=== PATIENT | male | born 1935 | race Caucasian/White ===

== ENCOUNTER 2018-11-12 06:34 | Day surgery (SDC) | payer MEDICARE, BC ==
[~2018-11-12 06:34] MED LIST: CEFAZOLIN 2 Gram 2 GM/50 ML BAG IVPB ONE; CELECOXIB 100 MG CAPSULE PO ONE; FAMOTIDINE 20MG TABLET PO ONE; MECLIZINE 25 MG TABLET PO ONE; METOCLOPRAMIDE 10 MG TABLET PO ONE; VANCOMYCIN HCL 1,000 MG in DEXTROSE 5 % IN WATER 250 ML IVPB ONE
[2018-11-12] MEDS ORDERED: DEXAMETHASONE 4 MG/ML 1ML VIAL IVP ONE (06:35)
[2018-11-12] MEDS ORDERED: PROPOFOL 10 MG/ML VIAL IV ONE (06:35)
[2018-11-12] MEDS ORDERED: TRANEXAMIC ACID 1,000 MG/10 ML ML IV ONE ×2 (06:35)
[2018-11-12] MEDS ORDERED: BUPIVACAINE 0.5% W/EPI MPF 30 ML VIAL IVP ONE (06:35)
[2018-11-12] MEDS ORDERED: ROPIVACAINE HCL (NAROPIN) /PF 5MG/ML 20ML VIAL IV ONE (06:35)
[2018-11-12] MEDS ORDERED: KETOROLAC 30 MG/ML VIAL IVP ONE (06:35)
[2018-11-12] MEDS ORDERED: 0.9 % SODIUM CHLORIDE 10 ML VIAL IVP ONE (06:35)
[2018-11-12] MEDS ORDERED: MIDAZOLAM HCL 2MG/2ML VIAL IV ONE (06:35)
[2018-11-12 07:33] LABS: ABO GROUP O; ANTIBODY SCREEN NEGATIVE (NEGATIVE); RH TYPE POSITIVE
[2018-11-12] MEDS ORDERED: ZOLPIDEM TARTRATE 5 MG TABLET PO PRN (10:52)
[2018-11-12] MEDS ORDERED: ACETAMINOPHEN W/ CODEINE 300MG/60MG TABLET PO PRN ×2 (10:52)
[2018-11-12] MEDS ORDERED: AL HYDROX/MAG HYDROX 30ML UD PO PRN (10:52)
[2018-11-12] MEDS ORDERED: HYDROMORPHONE HCL 2 MG/ML VIAL IM PRN (10:52)
[2018-11-12] MEDS ORDERED: DIPHENHYDRAMINE HCL 25 MG CAPSULE PO PRN (10:52)
[2018-11-12] MEDS ORDERED: HYDROCODONE/APAP 10/325 TABLET PO PRN ×2 (10:52)
[2018-11-12] MEDS ORDERED: TRAMADOL HCL 50 MG TABLET PO PRN (10:52)
[2018-11-12] MEDS ORDERED: ACETAMINOPHEN 325 MG TAB PO PRN (10:52)
[2018-11-12] MEDS ORDERED: ONDANSETRON HCL IV 4 MG/2 ML VIAL IVP PRN (10:52)
[2018-11-12] MEDS ORDERED: KETOROLAC 30 MG/ML VIAL IVP PRN ×2 (10:52)
[2018-11-12] MEDS ORDERED: MAGNESIUM HYDROXIDE 30 ML UDC PO PRN (10:52)
[2018-11-12] MEDS ORDERED: NALOXONE 0.4 MG/1 ML VIAL IVP PRN (10:52)
[2018-11-12] MEDS ORDERED: BISACODYL 10 MG SUPP RC PRN (10:52)
[2018-11-12] MEDS: POTASSIUM CHLORIDE/D5-0.9%NACL 20 MEQ/1,000 ML BAG IV SCH ×2 (13:30→22:09)
--- NOTE | 2018-11-12 14:49 | Rehab Evaluation ---
Patient Information - Patient Information Diagnosis: L knee OA Ordered Treatment: PT Evaluate and Treat Status: Initial Evaluation Surgery: Yes (L TKA) Date of Surgery: 11/12/18 Past Medical/Surgical Hx: PAST MEDICAL/SURGICAL HISTORY Past Surgical History bilat shoulder sx appy PMH - Respiratory Hx Respiratory Disorders Yes Hx Sleep Apnea Yes Hx of CPAP No PMH - Cardiovascular Hx Cardiovascular Disorders Yes Exercise Tolerance Fair Comment: hyperlipidemia PMH - Neuro Hx Neurological Disorders Yes Hx Seizures Yes: 1x over 1 yr ago on meds no activity since Comment: memory issues PMH - GI Hx Gastrointestinal Disorders No PMH - Hx Genitourinary Disorders Yes Hx Bladder Problem Yes: frequency on meds PMH - Endocrine Hx Endocrine Disorders No PMH - Musculoskeletal Hx Musculoskeletal Disorders Yes Hx Arthritis Yes: left knee PMH - Psych Hx Psychiatric Problems Yes Hx Depression Yes: on meds PMH - Hematology/Oncology Hx Hematology/Oncology Yes Disorders Hx Bruising Yes: bruises easily Premorbid Status: Detail (Prior to surgery, the patient was independent with mobility.) Social History: Detail (The patient lives in a 2 story home with 2 steps at the front enterance with no railings. The patient will be living primarily on the first floor. The bathroom is equipped with a tub/shower combination and a standard height toilet with a riser seat. The patient has a standard walker.) Precautions: [place], Fall, Other (WBAT on the L LE) - Time With Patient Total Time Spent With Patient (Min): 30 Treatment Procedures: Detail (Inital evaluation) Subjective Information - Subjective Information Per Patient (The patient had complaints of L knee pain level 3 at the highest using 0 to 10 pain scale.) Objective Data - Mental Status Patient Orientation: Oriented x3 - Visual Perception Appears within normal limits for therapeutic activities - ROM Not within normal limits (The patients L knee AROM was limited as to be expected following surgery. All other LE AROM was WNL.) - Strength/Tone Not within normal limits (The patient's L LE strength was not tested but was functional. The patient's R LE strength was generally 4+ to 5/5.) - Bed Mobility Independent (The patient was independent with supine to sit with use of R LE to lift L LE. The patient was independent with scooting up in bed.) - Transfers Independent (Independent with sit to and from stand transfer.) - Balance Balance Sitting: Good Balance Standing: Good - Sensation Intact - Gait Detail (The patient ambulated with standard walker 82 feet x1 WBAT on L LE with supervision for safety and occasional verbal cues for proper technique of use of walker.) Therapy Assessment - Therapy Assessment Detail (The patient was independent with bed mobility, transfers and required verbal cueing/CG with ambulation. Feel the patient will progress well with mobility.) Problem List - Problem List Physical Therapy Problem List: Detail (1) Decreased L knee AROM 2) Decreased L LE strength) Goals - Goals Physical Therapy Goals: 1) The patient will ambulate independently with assistive device without verbal cueing household distances WBAT on the L LE. 2 ) The patient will ambulate on steps with using proper technique with supervision for safety. 3) The patient will be independent with HEP of TKA exercises. Prognosis - Prognosis Good Plan - Plan Physical Therapy Plan: PT for1-2 sessions for gait training on levels and stairs and instruction in HEP.
[2018-11-12] MEDS: CEFAZOLIN 2 Gram 2 GM/50 ML BAG IVPB SCH (17:59)
[2018-11-12] MEDS: DOCUSATE SODIUM 100 MG CAPSULE PO SCH (21:47)
[2018-11-12] MEDS ORDERED: LEVETIRACETAM 750 MG PO SCH (22:00)
[2018-11-13] MEDS: CEFAZOLIN 2 Gram 2 GM/50 ML BAG IVPB SCH ×2 (00:45→09:51)
[2018-11-13] MEDS: POTASSIUM CHLORIDE/D5-0.9%NACL 20 MEQ/1,000 ML BAG IV SCH ×2 (05:08→11:30)
[2018-11-13] MEDS ORDERED: LEVETIRACETAM 750 MG PO SCH (06:00)
[2018-11-13 06:37] LABS: HEMOGLOBIN 10.6 gm/dl (14.0-18.0)
[2018-11-13 06:50] LABS: BLOOD UREA NITROGEN 13 mg/dL (8-23); CREATININE 0.9 mg/dL (0.7-1.2); EST GLOMERULAR FILTRATION RATE > 60 mL/min; GLUCOSE,RANDOM 123 mg/dL (74-109)
--- NOTE | 2018-11-13 08:44 | Rehab Evaluation ---
Patient Information - Patient Information Diagnosis: L knee OA Ordered Treatment: OT Evaluate and Treat Status: Initial Evaluation Surgery: Yes (L TKA) Date of Surgery: 11/12/18 Past Medical/Surgical Hx: PAST MEDICAL/SURGICAL HISTORY Past Surgical History bilat shoulder sx appy PMH - Respiratory Hx Respiratory Disorders Yes Hx Sleep Apnea Yes Hx of CPAP No PMH - Cardiovascular Hx Cardiovascular Disorders Yes Exercise Tolerance Fair Comment: hyperlipidemia PMH - Neuro Hx Neurological Disorders Yes Hx Seizures Yes: 1x over 1 yr ago on meds no activity since Comment: memory issues PMH - GI Hx Gastrointestinal Disorders No PMH - Hx Genitourinary Disorders Yes Hx Bladder Problem Yes: frequency on meds PMH - Endocrine Hx Endocrine Disorders No PMH - Musculoskeletal Hx Musculoskeletal Disorders Yes Hx Arthritis Yes: left knee PMH - Psych Hx Psychiatric Problems Yes Hx Depression Yes: on meds PMH - Hematology/Oncology Hx Hematology/Oncology Yes Disorders Hx Bruising Yes: bruises easily Premorbid Status: Detail (Prior to surgery, the patient was independent with mobility, ADLs and he was responsible for washing dishes.) Social History: Detail (The patient lives with his and son in a 2 story home with 2 steps at the entrance with no railings. The patient will be living primarily on the first floor. The bathroom is equipped with a tub/shower combination and a elevated toilet with a riser seat. He typically stands to shower. The patient has a standard walker, toilet riser and electrocardiographic technician. His and son are responsible for home mgmt, meal prep and laundry.) Precautions: [place], Fall, Other (WBAT on the L LE) - Time With Patient Total Time Spent With Patient (Min): 40 Treatment Procedures: Detail (OT eval low complexity) Subjective Information - Subjective Information Per Patient, Other ( was present during eval) Objective Data - Pain Pain Present: Yes (-01/29) - Mental Status Patient Orientation: Oriented x3 - Visual Perception Appears within normal limits for therapeutic activities - ROM Within normal limits (Right shoulder motion impaired due to previous shoulder surgery, remaining albina UE AROM WNL.) - Strength/Tone Within normal limits (Right shoulder 2-/5 due to previous shoulder surgery, remaining albina UE strength 4+/5. Pt reports he is completely functional with impaired right UE as he has adapted to weakness.) - Coordination Appears within normal limits for therapeutic activities - Bed Mobility Independent (Ind with supine to sit.) - Transfers Independent (Ind with sit to stand from EOB) - Balance Balance Sitting: Good Balance Standing: Good - Sensation Intact - Gait Detail (Pt ambulating in room with standard walker.) - ADL's/IADL's Detail (Pt educated and able to demonstrate learning of modified LE dressing techniques including doffing briefs and slipper socks, donning briefs, sweatpants and tennis shoes. Reviewed kitchen and bathroom safety and modifications, pt verbalized understanding.) Therapy Assessment - Therapy Assessment Detail (Pt is Ind with modified LE dressing techniques.) Problem List - Problem List Physical Therapy Problem List: Detail (1) Decreased L knee AROM 2) Decreased L LE strength) Occupational Therapy Problem List: Detail (No current IP OT problems identified. ) Goals - Goals Physical Therapy Goals: 1) The patient will ambulate independently with assistive device without verbal cueing household distances WBAT on the L LE. 2 ) The patient will ambulate on steps with using proper technique with supervision for safety. 3) The patient will be independent with HEP of TKA exercises. Occupational Therapy Goals: No current IP OT goals identified. Prognosis - Prognosis Good Plan - Plan Physical Therapy Plan: PT for1-2 sessions for gait training on levels and stairs and instruction in HEP. Occupational Therapy Plan: No further IP OT recommended. Thank you for this referral.
[2018-11-13] MEDS: DOCUSATE SODIUM 100 MG CAPSULE PO SCH (09:13)
--- NOTE | 2018-11-13 09:50 | Operative Note ---
DATE OF SURGERY: 11/12/2018 PREOPERATIVE DIAGNOSIS: End-stage arthrosis of the left knee. POSTOPERATIVE DIAGNOSIS: End-stage arthrosis of the left knee. OPERATION: Cemented left total knee arthroplasty using [employer] II components with a size 7 cobalt chrome femur, a size 7 stem tibia baseplate, a 9 mm lipped tibial insert, and a 35 mm all plastic patella. Staff Surgeon: Tom Ji MD Anesthesia: Spinal. PREPARATION: Chloraprep. INDIVIDUAL CONSIDERATIONS: None. PROCEDURE: The patient was taken to the operating room, placed supine on the operating room table. He had a successful induction of spinal anesthetic. The left lower extremity was prepped and draped in the usual fashion. The limb was elevated and tourniquet was inflated to 250 mmHg. The patient had a midline approach to the knee. Sharp dissection carried down through skin and subcutaneous tissue. Small veins were coagulated with a Bovie. A medial arthrotomy was performed. The patella was everted and the knee was flexed. The patient had exposed bone with bone loss medially and extending into the patellofemoral compartment. Fat pad was resected, ACL was sacrificed, provisional anterior meniscectomies were performed. The capsule was released from the medial proximal tibia. The initial femoral test pilot hole was then made freehand. The intramedullary femoral cutting jig was placed. It was cut in 7.0 degrees of valgus and adjusted for rotation and secured with pins for a 10 mm resection. The initial transverse cut was then made. The skin guide was placed in the anterior and posterior test pilot holes. It was set for a 9 mm resection keyed off the high lateral side and secured with pins. When cutting the tibia, care was taken to preserve the PCL insertion on the tibia. It was found that a size 7 would be appropriate. The anterior and posterior cuts followed by chamfer cuts were made. Osteophytes removed, and a size 7 trial was placed and found to fit well. The tibia was brought forward, and the remainder of the meniscal remnants removed with a Bovie. The extraarticular tibial cutting jig was placed. It was cut in neutral with a 3-degree AP slope. After cutting the tibia, osteophytes were removed. The remainder of the meniscal remnants were removed and it was found that a 7 baseplate trial fit appropriately. With a 9 mm trial and a femoral trial, there was excellent motion and stability, ligamentous balance, rotation alignment, patellofemoral tracking were normal. No lateral release was required. The femoral test pilot holes were impacted and the tri-flange tibial stamp was impacted, and these trial components were removed. The patient had a thick patella and roughly 9 mm of bone was removed freehand. I was easily able to fit a 35 patella, and the 3 test pilot holes were drilled. After thorough irrigation, tourniquet was let down briefly to get bleeders posteriorly and then placed back up again. The knee was then thoroughly irrigated out again with pulsatile Betadine and saline to remove any visual or palpable debris. Bony surfaces were then dried. A size 7 stem tibia baseplate was cemented into place followed by impaction of the 9 mm lipped tibial insert followed by cementing in the size 7 cobalt chrome femur followed by cementing in the 35 mm patella. The implant surfaces were compressed, excess cement was removed, and after the cement had set, there was excellent motion and stability, ligamentous balance, rotation alignment, and patellofemoral tracking were normal. No lateral release was required. Again hemostasis was obtained with a Bovie after dropping the tourniquet. The skin and subcutaneous tissue and periosteum were infiltrated with 30 mL of 0.5% Marcaine with epinephrine. The capsule was then closed with a running #2 quill, subcu was closed in layers with running 0 quill, skin was closed with nemo. The patient did receive 1 g of tranexamic acid preoperatively. I mixed 1 g of tranexamic acid with 30 mL of saline and injected into the knee through a sterile 18-gauge needle and a sterile bulky compressive MILEY-type dressing was applied. The patient tolerated the procedure well. Needle and sponge counts were correct. Estimated blood loss was minimal, and he was taken back to recovery in good condition. There were no complications. PIOTR
[2018-11-13] MEDS ORDERED: TAMSULOSIN HCL 0.4 MG CAP.ER.24H PO SCH (10:00)
[2018-11-13] MEDS ORDERED: RIVAROXABAN 10 MG TABLET PO SCH (10:00)
[2018-11-13] MEDS ORDERED: ASPIRIN 81 MG TABEC PO SCH (10:00)
[2018-11-13] MEDS ORDERED: PATIENT OWN MED: MYBETRIQ 50 MG PO SCH (10:00)
[2018-11-13] MEDS ORDERED: PATIENT OWN MED: ESCITALOPRAM 10 MG PO SCH (10:00)
[2018-11-13] MEDS ORDERED: PATIENT OWN MED: LOVASTATIN 20 MG PO SCH (10:00)
[2018-11-13] MEDS ORDERED: FERROUS SULFATE 325 MG TAB PO SCH (10:00)
[2018-11-13] MEDS ORDERED: ARICEPT 5 MG PO SCH (10:00)
[2018-11-13] MEDS ORDERED: VESICARE 5 MG PO SCH (10:00)
--- NOTE | 2018-11-13 10:50 | Physical Therapy Tx Note ---
Physical Therapy Tx Note - Treatment Note Tolerated: Good Total Time Spent With Patient: 25 Physical Therapy Tx Note: Detail (The patient was up in chair when PT arrived. The patient ambulated 80 feet with standard walker WBAT on the L LE independently. The patient completed the following TKA exercises: SLR, ankle pumps, quad sets, gluteal sets, hamstring sets and heel slides. The patient has met all inpatient goals and is discharged from inpatient PT.) Physical Therapy Problem List: Detail (1) Decreased L knee AROM 2) Decreased L LE strength) Physical Therapy Goals: 1) The patient will ambulate independently with assistive device without verbal cueing household distances WBAT on the L LE. ( Goal Met). 2) The patient will ambulate on steps with using proper technique with supervision for safety. (Goal Met). 3) The patient will be independent with HEP of TKA exercises.(Goal Met) Prognosis: Good Physical Therapy Plan: All inpatient goals have been met. The patient has been discharged from inpatient PT and is to receive home PT.
== END 2018-11-13 12:45 | disposition home health service (06) ==
LOC: SUR 06:34 → MEDSURG 11:23 → SUR 11-13 12:45
PROVIDERS: ATTEND Orthopaedic Surgery
DX: M17.12 Unilateral primary osteoarthritis, left knee (principal); R56.9 Unspecified convulsions; E78.00 Pure hypercholesterolemia, unspecified; N32.81 Overactive bladder
CPT/HCPCS: 27447; 01402; 64447; 85018; 85014; 80048; 86900; 86901; 86850; J1885; J3370; J0690 ×2; J3490; J2795; 97530; C1776; J3480; J7060

== ENCOUNTER 2019-11-18 13:34 | Day surgery (SDC) | payer BC, MEDICARE ==
[~2019-11-18 13:34] MED LIST changes: +ACETAMINOPHEN 1,000 MG/100 ML BTL IVPB ONE; -CEFAZOLIN 2 Gram 2 GM/50 ML BAG IVPB ONE; +CEFAZOLIN 2 Gram 2 GM/50 ML BAG IVPB SCH; -CELECOXIB 100 MG CAPSULE PO ONE; -FAMOTIDINE 20MG TABLET PO ONE; -MECLIZINE 25 MG TABLET PO ONE; -METOCLOPRAMIDE 10 MG TABLET PO ONE; -VANCOMYCIN HCL 1,000 MG in DEXTROSE 5 % IN WATER 250 ML IVPB ONE
[2019-11-18] MEDS ORDERED: LIDOCAINE 1% W/EPI 1:200,000 MPF 30ML SQ ONE (15:50)
--- NOTE | 2019-11-21 06:20 | Operative Note ---
DATE OF SURGERY: 11/18/2019 PREOPERATIVE DIAGNOSIS: Right carpal tunnel syndrome. POSTOPERATIVE DIAGNOSIS: Right carpal tunnel syndrome. OPERATION: Right carpal tunnel release. STAFF SURGEON: Tom Ji MD ANESTHESIA: Local. PREPARATION: Chloraprep. INDIVIDUAL CONSIDERATIONS: None. SOCIOLOGY FACULTY MEMBER: Mrs. Irlanda Ngo PROCEDURE: The patient was taken to the operating room and placed supine on the operating room table. Had a successful induction of local anesthetic after the right arm was prepped and draped in the usual fashion. The patient had an incision over the wrist crease volarly longitudinally just barely crossing at a 45-degree angle ulnarly. The limb was elevated. Tourniquet was inflated to 250 mmHg prior. Sharp dissection carried down through skin and subcutaneous tissues. Sharp dissection carried down through a small adductor brevis and then through the transverse metacarpal fascia distally to the superficial arch and recurrent branch and proximally to the antebrachial fascia. The median nerve was contused right at the junction between the antebrachial fascia and the transverse metacarpal ligament. It was otherwise intact. Tourniquet was let down and hemostasis was obtained with compression and a Bovie. The skin was then approximated after irrigation with interrupted 4-0 nylon in a vertical mattress fashion. A sterile bulky compressive hand dressing was applied. The patient tolerated the procedure well. Needle and sponge counts were correct. Estimated blood loss was minimal. He was taken back to recovery in good condition. There were no complications. [facility]ITAL[facility]
== END 2019-11-18 16:33 | disposition home or self-care (01) ==
LOC: SUR 13:34
PROVIDERS: ATTEND Orthopaedic Surgery
DX: G56.01 Carpal tunnel syndrome, right upper limb (principal)